=== PATIENT | male | born 1955 | race Caucasian/White ===

== ENCOUNTER → 2018-09-07 | Outpatient (CLI) | payer OTHER ==
--- NOTE | 2018-09-07 14:19 | 2DMMODE ---
[place] [address] 2 D/M-MODE ECHOCARDIOGRAM Name: DALE MEEK Room: [facility]#: [id number] Admission: 09/07/18 Attend Phys: Dale Quintero, Discharge: Date of : 53 Date of Service: 09/07/18 1418 Report #: [id number] THIS REPORT FOR: //name// APPROVED REPORT Study performed: 09/07/2018 13:14:29 EXAM: Comprehensive 2D, Doppler, and color-flow Echocardiogram Patient Location: Out-Patient Status: routine BSA: 2.32 HR: 58 bpm Other Information Study Quality: Good Indications Congestive Heart Failure 2D Dimensions IVSd: 12.06 (7-11mm) LVOT Diam: 21.59 (18-24mm) LVDd: 53.18 mm PWd: 12.35 (7-11mm) Ascending Ao: 33.81 (22-36mm) LVDs: 38.67 (25-40mm) Aortic Root: 32.73 mm Volumes Left Atrial Volume (Systole) LA ESV Index: 21.40 mL/m2 Aortic Valve AoV Peak Akil.: 1.38 m/s AO Peak Gr.: 7.63 mmHg LVOT Max P.72 mmHg AO Mean Gr.: 3.75 mmHg LVOT Mean P.19 mmHg LVOT Max V: 0.66 m/s AO V2 VTI: 23.68 cm LVOT Mean V: 0.53 m/s CYNTHIA (VTI): 1.96 cm2 LVOT V1 VTI: 12.66 cm Mitral Valve E/A Ratio: 0.64 MV Decel. Time: 362.59 ms MV E Max Akil.: 0.52 m/s MV PHT: 105.15 [place] [address] 2 D/M-MODE ECHOCARDIOGRAM Name: DALE MEEK Room: [facility]#: [id number] Admission: 09/07/18 Attend Phys: Dale Quintero, Discharge: Date of : 53 Date of Service: 09/07/18 1418 Report #: [id number] MVA (PHT): 2.09 cm2 TDI E/Lateral E': 7.43 E/Medial E': 7.43 Medial E' Akil.: 0.07 m/s Lateral E' Akil.: 0.07 m/s Pulmonary Valve PV Peak Akil.: 1.01 m/s PV Peak Gr.: 4.09 mmHg Tricuspid Valve RAP Estimate: 5.00 mmHg TR Peak Gr.: 14.92 mmHg RVSP: 19.92 mmHg PA Pressure: 19.92 mmHg Left Ventricle The left ventricle is normal size. There is global hypokinesis of the left ventricle. Mild concentric left ventricular hypertrophy. Left ventricular systolic function is mildly decreased. LVEF is 40-45%. Grade I - abnormal relaxation pattern. Right Ventricle The right ventricle is normal size. The right ventricular systolic function is normal. Atria The left atrium size is normal. The right atrium size is normal. Aortic Valve The aortic valve is normal in structure. No aortic regurgitation is present. There is no aortic valvular stenosis. Mitral Valve The mitral valve is normal in structure. Trace mitral regurgitation. No evidence of mitral valve stenosis. Tricuspid Valve The tricuspid valve is normal in structure. Mild tricuspid regurgitation. Pulmonic Valve The pulmonary valve is normal in structure. There is no pulmonic valvular [place]itation[place] [address] 2 D/M-MODE ECHOCARDIOGRAM Name: DALE MEEK Room: [facility]#: [id number] Admission: 09/07/18 Attend Phys: Dale Quintero, Discharge: Date of : 53 Date of Service: 09/07/18 1418 Report #: [id number] The aortic root is normal in size. IVC is normal in size and collapses >50% with inspiration. Pericardium There is no pericardial effusion. <Conclusion> Mild concentric left ventricular hypertrophy. LVEF is 40-45%. <ELECTRONICALLY SIGNED> By: Sabino Peters MD, FACC 10/08/18 1418 1418 1418 Sabino Peters MD, [facility] /INF
== END ==
LOC: M.CRD 12:58
DX: I42.8 Other cardiomyopathies (principal); I51.7 Cardiomegaly

== ENCOUNTER → 2021-05-31 | Outpatient (CLI) | payer MEDICARE, OTHER ==
[2021-05-31] VITALS (14 sets, daily range): BP systolic 99–152; BP diastolic 61–114
[~2021-05-31] MED LIST: ALLOPURINOL 10100 M1 PO; COREG6.25 MG PO; ENTRESTO 24 MG1 EACH PO; XARELTO20 MG PO
[2021-05-31 09:13] LABS: HEMATOCRIT 41.8 % (42.0-52.0); HEMOGLOBIN 14.8 gm/dL (14.0-18.0); MCH 32.3 pg (26.0-34.0); MCHC 35.4 g/dL (28.0-37.0); MCV 91.3 fL (80.0-100.0); MPV 9.8 fl. (7.2-11.1); RBC 4.57 mil/uL (4.50-6.00); RDW-CV 14.7 % (10.5-14.5); WBC 4.9 thou/uL (4.0-11.0)
[2021-05-31 09:28] LABS: INR 1.1; PROTIME 11.3 Seconds (9.20-11.50)
[2021-05-31 09:30] LABS: CALCIUM 8.9 mg/dL (8.5-10.1); CREATININE 0.9 mg/dL (0.6-1.3); POTASSIUM 4.7 mmol/L (3.5-5.1); TOTAL PROTEIN 7.3 g/dL (6.4-8.2)
--- NOTE | 2021-05-31 11:35 | TEE ---
[place] [address] TRANSESOPHAGEAL ECHOCARDIOGRAM Name: DALE MEEK Room: [facility]#: [id number] Admission: 05/31/21 Attend Phys: Dale Quintero, Discharge: Date of : 53 Date of Service: 05/31/21 1134 Report #: [id number] THIS REPORT FOR: cc: THERESA PETERSON RN, MEGAN MSN RN [employer] Dale Quintero MD [facility] ~ APPROVED REPORT Study performed: 05/31/2021 08:58:36 EXAM: Transesophageal Echocardiogram Patient Location: Out-Patient Status: routine BSA: 2.30 HR: 83 bpm BP: 148/97 mmHg Rhythm: Atrial Fibrillation Other Information Study Quality: Good Indications Atrial Fibrillation Echo Enhancing Agent Indication: Rule out Shunt Agent(s) / Amount(s) Used: Agitated Saline 10 cc Procedure After obtaining informed consent, patient underwent transesophageal echo in the [employer] [facility] [employer]. Type of Sedation : Conscious Sedation Sedation was administered by Amy Rodriguez RN. Sedation start time: 909 Case end Time: 927 Sedation was achieved intravenously with: Versed (8) Fentanyl (150) Transesophageal probe was inserted and advanced into esophagus without difficulty by Dale Quintero MD, FAC. Echo enhancement indication: R/O Septal defect. Echo enhancement agent administered: Agitated Saline The ARNALDO was performed without complications. Synchronized Cardioversion acheived with 360 Joules after 1 attempt(s). Rhythm following Synchronized Cardioversion: [place] [address] TRANSESOPHAGEAL ECHOCARDIOGRAM Name: DALE MEEK Room: [facility]#: [id number] Admission: 05/31/21 Attend Phys: Dale Quintero, Discharge: Date of : 53 Date of Service: 05/31/21 1134 Report #: [id number] Throughout the procedure, the blood pressure, pulse oximetry, cardiac rhythm, and rate were monitored. The patient tolerated the procedure without adverse effects. Recovery from conscious sedation was uneventful and vital signs were stable. Left Ventricle The left ventricle is normal size. There is normal LV segmental wall motion. There is normal left ventricular wall thickness. Left ventricular systolic function is mildly decreased. LVEF is 45-50%. Right Ventricle The right ventricle is normal size. The right ventricular systolic function is normal. Atria The left atrium size is normal. No thrombus is visualized in the left atrium or appendage. The interatrial septum is intact with no evidence for an atrial septal defect. The right atrium size is normal. Aortic Valve The aortic valve is normal in structure. No aortic regurgitation is present. There is no aortic valvular stenosis. Mitral Valve The mitral valve is normal in structure. Mild mitral regurgitation. No evidence of mitral valve stenosis. Tricuspid Valve The tricuspid valve is normal in structure. There is no tricuspid valve regurgitation noted. Pulmonic Valve The pulmonary valve is normal in structure. There is no pulmonic valvular regurgitation. Great Vessels The aortic root is normal in size. Pericardium There is no pericardial effusion. <Conclusion> The [place] [address] TRANSESOPHAGEAL ECHOCARDIOGRAM Name: DALE MEEK Room: [facility]#: [id number] Admission: 05/31/21 Attend Phys: Dale Quintero, Discharge: Date of : 53 Date of Service: 05/31/21 1134 Report #: [id number] There is normal left ventricular wall thickness. Left ventricular systolic function is mildly decreased. LVEF is 45-50%. The interatrial septum is intact with no evidence for an atrial septal defect. The left atrium size is normal. No thrombus is visualized in the left atrium or appendage. Mild mitral regurgitation. <ELECTRONICALLY SIGNED> By: Dale Quintero MD, FAC 05/31/21 1134 1134 1134 Dale Quintero MD, FACC /INF
== END | disposition home or self-care (01) ==
LOC: M.CL 08:27
PROVIDERS: ATTEND Internal Medicine Cardiovascular Disease
DX: I48.91 Unspecified atrial fibrillation (principal); I34.0 Nonrheumatic mitral (valve) insufficiency; Z98.890 Other specified postprocedural states; Z79.899 Other long term (current) drug therapy; Z79.01 Long term (current) use of anticoagulants